=== PATIENT | female | born 1965 | race Caucasian/White ===

== ENCOUNTER 2020-10-15 02:37 | Outpatient (CLI) | payer BC, SELFPAY ==
[2020-10-15 19:46] LABS: SARS-CoV-2 RNA PCR Negative
== END 2020-10-15 02:38 | disposition home or self-care (01) ==
LOC: ANHCOVIDDT 02:37
PROVIDERS: Visit Provider Surgery Plastic and Reconstructive Surgery
DX: Z01.812 Encounter for preprocedural laboratory examination (principal); Z20.828 Contact with and (suspected) exposure to other viral communicable diseases
CPT/HCPCS: 87635; C9803; U0003

== ENCOUNTER 2020-10-15 09:26 | Outpatient (CLI) | payer OTHER, BC, SELFPAY ==
[2020-10-15 10:13] LABS: Hematocrit 42.8 % (37.0-47.0); Hemoglobin 14.3 g/dL (12.0-15.0); Mean Corpuscular HGB Conc 33.4 g/dl (32-36); Mean Corpuscular Hemoglobin 30.2 pg (26-34); Mean Corpuscular Volume 90.3 fl (80-100); Mean Platelet Volume 9.3 fl (7.4-10.4); Platelet Count Result 349 k/mm3 (150-375); Red Blood Count 4.74 M/mm3 (4.2-5.4); Red Cell Distribution Width 11.9 % (11.5-14.5); White Blood Count 10.1 K/mm3 (4.5-10.0)
[2020-10-15 10:22] LABS: Hemoglobin A1C 6.7 % (<5.7)
[2020-10-15 10:33] LABS: Albumin Level 4.6 g/dL (3.5-5.1); Anion Gap 14 mmol/L (8-16); Blood Urea Nitrogen 25 mg/dL (7-17); Calcium 10.3 mg/dL (8.4-10.2); Carbon Dioxide 28 mmol/L (22-30); Chloride 96 mmol/L (98-107); Estimated Glomerular Filt Rate > 60; Glucose 258 mg/dL (65-105); Potassium 3.4 mmol/L (3.4-5.0); Sodium 138 mmol/L (137-145)
[2020-10-15 10:35] LABS: Iron 78 ug/dL (37-170)
[2020-10-15 10:40] LABS: Prealbumin 28.8 mg/dL (17.6-36.0)
== END 2020-10-15 09:27 | disposition home or self-care (01) ==
LOC: ANHSURGERY 09:31
PROVIDERS: PCP Nurse Practitioner Family; Visit Provider Surgery Plastic and Reconstructive Surgery
DX: Z01.818 Encounter for other preprocedural examination (principal); Z41.1 Encounter for cosmetic surgery
CPT/HCPCS: 36415; 80048; 82040; 83036; 83540; 84134; 84425; 85027

== ENCOUNTER 2020-10-18 04:21 | Day surgery (SDC) | payer OTHER, SELFPAY ==
[2020-10-08 09:19] VITALS: BMI 29.2
[2020-10-18] VITALS (8 sets, daily range): BP systolic 116–159; BP diastolic 59–108; PULSE 74–94; RESP 14–20; TEMP 36.2–37.1; O2SAT 95–100
--- NOTE | 2020-10-18 06:37 | WPDANESEPPF ---
Anes - Initial Pre Proc Eval Procedure: Operation Date: 10/18/20 07:30 Proposed Procedures p Bilateral Brachioplasty - Diogenes Salas MD Date/Time: 10/18/20 06:37 Surgeon: Diogenes Salas MD Pre Op Diagnosis: Skin Laxity Patient Data Age: 55 Gender: F Height: 1.63 m Weight: 77.11 kg Allergies Allergy/AdvReac Type Severity Reaction Status Date / Time hydrocodone AdvReac Nausea Verified 10/08/20 09:20 Home Medications Medication Instructions Recorded Confirmed Type amitriptyline 10 mg PO HS 12/05/19 10/08/20 History bumetanide 1 mg PO DAILY PRN 12/05/19 10/08/20 History bupropion HCl 150 mg PO DAILY 12/05/19 10/08/20 History canagliflozin [Invokana] 300 mg PO DAILY 12/05/19 10/08/20 History metformin 1,000 mg PO BID 12/05/19 10/08/20 History methylphenidate HCl 20 mg PO DAILY 12/05/19 10/08/20 History triamterene-hydrochlorothiazid 1 cap PO DAILY 12/05/19 10/08/20 History ondansetron HCl 4 mg tablet 4 mg PO Q8H #28 tablet 10/02/20 10/08/20 Rx oxycodone-acetaminophen 5 mg-325 1 tablet PO Q6H PRN #15 tablet 10/06/20 10/08/20 Rx mg tablet 21-iron fu-folic acid 1 tablet PO DAILY 10/08/20 10/08/20 History [ Complete] temazepam 30 mg PO HS 10/08/20 10/08/20 History Patient hx anesthesia problems: none Family hx anesthesia problems: none [facility] Past Medical History Medical History (Updated 10/18/20 @ 06:48 by Michael Parekh DO) Diabetes Migraines Sleep apnea Social History Social History Smoking status: Never smoker Spiritual care concerns: No Anes - Eval Final PreProcedure Day of Procedure 10/18/20 06:37 Patient weight: overweight Heart: regular rate and rhythm Lungs: clear to auscultation and normal air movement Airway: Mallampati scale class II Neurological: alert and oriented Last oral intake: >/= 8 hours ASA classification: III Emergent: no Anesthetic plan: proceed Anesthesia type and monitoring: general LMA and standard monitoring Informed Consent: The patient's anesthetic plan and its attendant risks and benefits were discussed with the patient/family/POA. Questions were solicited and answers provided to the satisfaction of the patient/family/POA.
[2020-10-18 06:55] LABS: Urine Cotinine NEGATIVE
--- NOTE | 2020-10-18 07:00 | WPDHPUPDATE1 ---
History and Physical Update Update Date/Time: 10/18/20 07:00 History and Physical has been reviewed, including an updated exam of the patient. There are NO changes in the patient's condition. Risks, benefits, and alternatives have been discussed and questions answered. Patient agrees to proceed with procedure.
[2020-10-18 07:02] LABS: Glucose Point of Care 125 (65-105)
--- NOTE | 2020-10-18 07:09 | SUR.PREOP ---
0600-DR. WOODALL DISCUSSED FOOT ACCESS WITH DR. BEACH, WILL PROCEED WITH HAND IV.
[2020-10-18] MEDS: LACTATED RINGERS 1,000 ML 30 ML IV CONT ×2 (07:15→11:06)
--- NOTE | 2020-10-18 07:15 | PM.PROC ---
Procedure Note - Detailed Date of procedure: 10/18/20 Pre-op diagnosis: Skin Laxity Post-op diagnosis: same Procedure performed: Bilateral brachioplasty Description of procedure: she was marked in the preoperative holding area with her verification. Risks, benefits, alternatives were discussed in extensive detail. I want her to be very realistic about the risks involved as well as expectations. Discussed realistic expectations of outcome. What monitor for after. Went to call for help. Went to dial 911/ proceed to the emergency room. All questions answered to her satisfaction. She would like proceed. She was taken to the operating room placed supine on the operating room table. Anesthesia was provided by anesthesiology and she was prepped and draped in a standard sterile fashion. Surgical time-out was taken. Stab incisions were made and a tumescent solution was used tumesced the arms. I gave adequate time for hemostasis. Using a 4 mm basket cannula completed suction lipectomy of the arm. In the central planned resection area this was completely deep fat it. Then using a strip avulsion technique I used a 10 blade to make an incision in a cut and closed as you go fashion from proximal to distal. On the right she had significant deep tissue laxity and I had to back up a small distance to ensure appropriate closure. I closed using 2-0 Vicryl followed by 3-0 Stratafix in a running subcuticular 4-0 Monocryl and finally Steri-Strips. Dressings were placed. She was woken taken to the PACU without difficulty. All instrument sponge counts were correct at the end of the case. Anesthesia: GLMA Surgeon: Diogenes Salas MD Estimated blood loss (mL): 30 Drains: No Packing: No Pathology: none sent Complications: No immediate complications Condition: stable Disposition: PACU Findings: 700cc lipoaspirate
[2020-10-18] MEDS: ceFAZolin 2 GM/D5W 50 ML 2 GM/50 ML BAG IVPB (07:35)
--- NOTE | 2020-10-18 10:52 | SUR.OPER ---
EBL:20cc
[2020-10-18] MEDS: MIDAZOLAM HCL (*CRX) 2 MG/2 ML VIAL 1 MG IV PUSH (11:26)
--- NOTE | 2020-10-18 11:30 | SUR.PHASEI ---
1106; PT ARRIVED INTO PACU VERY ANXIOUS. C/O CANT BREATHE . PT REMOVING O2 MASK. ORIENTED PT TO PACU. RESP EVEN UNLABORED. P,W,D. LUNGS CTA =. PT COMFORTED. 1115; PT CONTINUES TO REMOVE O2 MASK. NASAL CANNULA APPLIED. PT COMFORTED. PT SHAKING. SHIREEN HUGGER APPLIED. STATES I;M DYING REPEATEDLY. 1120; DR WOODALL NOTIFIED OF EXTREME ANXIETY. VERSED ORDERED. TOTAL OF 2MG
--- NOTE | 2020-10-18 12:09 | SUR.PHASEI ---
PT AWAKE, READY TO GO TO [facility]
== END 2020-10-18 13:10 | disposition home or self-care (01) ==
PROVIDERS: PCP Nurse Practitioner Family; Visit Provider Surgery Plastic and Reconstructive Surgery
PROC: (CPT 15836; principal; 2020-10-18 07:30)
DX: Z41.1 Encounter for cosmetic surgery (principal); L57.4 Cutis laxa senilis; E11.9 Type 2 diabetes mellitus without complications; G47.30 Sleep apnea, unspecified; Z79.84 Long term (current) use of oral hypoglycemic drugs; Z79.899 Other long term (current) drug therapy
CPT/HCPCS: 15836; 80307; J0171; J0690; J1100; J2250; J2370; J2405; J2704; J3010; J7120